=== PATIENT | female | born 1945 | race Caucasian/White ===

== ENCOUNTER → 2018-06-26 10:31 | Outpatient (CLI) | payer OTHER, SELFPAY | PROVIDERS: Family Provider Physician Assistant; PCP Physician Assistant; Visit Provider Nurse Practitioner Family | DX: M25.511 Pain in right shoulder (principal); Z85.3 Personal history of malignant neoplasm of breast | CPT/HCPCS: 73030 ==

== ENCOUNTER → 2022-08-23 | Outpatient (CLI) | payer SELFPAY, OTHER ==
--- NOTE | 2022-08-23 09:10 | BD_ITS ---
STUDY: DUAL ENERGY X-RAY ABSORPTIOMETRY / DXA REASON FOR EXAM: Female, 77 years old. Screening for osteoporosis TECHNIQUE: Bone Mineral Density (BMD) measurements of lumbar spine and bilateral hips were obtained. COMPARISON: None. FINDINGS: Lumbar Spine (L1-L4): g/cm2 (0.854) / T-score (-1.8) / Z-score (0.8) Findings are suggestive of osteopenia with a moderate fracture risk. Left Femur Total: g/cm2 (0.771) / T-score (-1.4) / Z-score (0.5) Left Femoral Neck: g/cm2 (0.559) / T-score (-2.6) / Z-score (-0.4) Right Femur Total: g/cm2 (0.789) / T-score (-1.3) / Z-score (0.7) Right Femoral Neck: g/cm2 (0.675) / T-score (-1.6) / Z-score (0.7) BD/Dexa Bone Density Study IMPRESSION: The patient is considered osteoporotic as outlined below according to World [employer] Organization (WHO) criteria with a high fracture risk. Reference Information: The T-score is the number of standard deviations above or below the standard which is normal for young adults at their peak bone mineral density. The World Health Organization (WHO) interprets the T-scores as follows: Above -1 Normal bone density Between -1 and -2.5 Osteopenia Equal to / or below -2.5 Osteoporosis As a practical clinical guideline, osteopenia may be graded as follows: Mild -1 through -1.5 Moderate -1.6 through -2.0 Severe -2.1 through -2.4 The Z-score is the number of standard deviations above or below age-matched controls. A Z-score of less than -1.5 would be considered abnormal. References: 1. NIH Osteoporosis and Related Bone Diseases www osteo.org 2. International Society for Clinical Densitometry www iscd.org 3. National Osteoporosis Foundation www nof.org Electronically Signed: Arnulfo Bradley MD at 15:43 EDT ,
--- NOTE | 2022-08-23 09:29 | NM_ITS ---
CLINICAL: 77-year-old female with history of carcinoma of the breast with elevation of the serum alkaline phosphatase level. WHOLE BODY 99m Tc MDP RADIONUCLIDE BONE SCINTIGRAPHY COMPARISON: None available FINDINGS: Following the intravenous administration of 26.4 mCi of 99m Tc MDP, whole body bone images reveal: 1. Facilitated radiopharmaceutical concentration is defined in the posterior compartment of the right ankle, medial tibial compartments of both knees, the acromioclavicular, sternoclavicular and glenohumeral compartments of both shoulders, the upper lower cervical spine posteriorly on the left and right, the right hip articulation. 2. There is an increase in tracer uptake noted in the right posterior lateral chest wall-11th rib. 3. The remaining skeletal structures are scintigraphically unremarkable with normal-appearing renal images and urinary bladder activity identified. NM/Bone Scan Whole Body IMPRESSION: 1. The increase in radiopharmaceutical defined in the right post lateral chest wall-11th rib is consistent with trauma-fracture. Plain film radiography correlation may be of benefit. 2. 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 3. There is no definitive scintigraphic evidence of diffuse axial skeletal metastatic disease. Electronically Signed: Tay Shi, at 21:16 EDT ,
== END | disposition home or self-care (01) ==
PROVIDERS: PCP Physician Assistant; Visit Provider Nurse Practitioner Family
DX: Z13.820 Encounter for screening for osteoporosis (principal); Z78.0 Asymptomatic menopausal state; R74.8 Abnormal levels of other serum enzymes; Z85.3 Personal history of malignant neoplasm of breast
CPT/HCPCS: 77080; 78306; A9503